=== PATIENT | male | born 1960 | race Caucasian/White ===

== ENCOUNTER 2017-07-31 20:17 | Inpatient (IN) | payer OTHER ==
[~2017-07-31] VITALS: Ht 193 cm; Wt 127.0 kg
[2017-07-31 02:00] VITALS: BP_SYST 123
[2017-07-31 20:33] VITALS: BP_SYST 150
[2017-07-31] MEDS ORDERED: MORPHINE SULFATE 10 MG/ML VIAL IVP ONE ×2 (21:00→23:15)
[2017-07-31] MEDS ORDERED: NACL 0.9% 1,000 ML IV ONE (21:00)
[2017-07-31] MEDS ORDERED: ONDANSETRON HCL 4 MG/2 ML VIAL IVP ONE (21:00)
[2017-07-31 21:21] LABS: BASOPHILS # (AUTO) 0.1 K/uL (0.0-0.2); BASOPHILS % (AUTO) 0.6 % (0.0-2.0); EOSINOPHILS % (AUTO) 0.1 % (0.0-4.0); HEMATOCRIT 50.9 % (36-54); LYMPHOCYTES # (AUTO) 4.8 K/uL (1.0-5.5); LYMPHOCYTES % (AUTO) 20.8 % (20.5-51.5); MEAN CORPUSCULAR HEMOGLOBIN 30 pg (27-31); MEAN CORPUSCULAR HGB CONC 33 % (32-36); MEAN CORPUSCULAR VOLUME 90 fL (79.0-98.0); MONOCYTES # (AUTO) 1.2 K/uL (0.0-1.0); NEUTROPHILS # (AUTO) 17.1 K/uL (1.8-7.7); NEUTROPHILS % (AUTO) 73.5 % (40.0-70.0); PLATELET COUNT (AUTO) 388 K/uL (130-430); RED BLOOD CELL COUNT(AUTO) 5.68 MIL/uL (4.2-6.2); RED CELL DISTRIBUTION WIDTH 13.3 % (9.0-15.0); WHITE BLOOD COUNT (AUTO) 23.2 K/uL (4.8-10.8)
[2017-07-31 21:26] LABS: CALCIUM 8.8 mg/dL (8.4-11.0); CREATININE 1.03 mg/dL (0.55-1.30); POTASSIUM 3.8 mmol/L (3.5-5.1)
[2017-07-31 21:30] LABS: ALBUMIN 2.9 g/dL (3.4-4.8); PROTHROMBIN TIME 9.8 SECS (9.5-12.5); TOTAL BILIRUBIN 0.6 mg/dL (0.0-1.0)
[2017-07-31 22:26] LABS: BILIRUBIN,URINE 1+ (NEGATIVE); BLOOD, URINE NEGATIVE (NEGATIVE); CLARITY/URINE SL HAZY (CLEAR); COLOR,URINE YELLOW (YELLOW); GLUCOSE,URINE NEGATIVE (NEGATIVE); KETONES,URINE NEGATIVE (NEGATIVE); LEUKOCYTE ESTERASE ,URINE NEGATIVE (NEGATIVE); NITRITE, URINE NEGATIVE (NEGATIVE); PROTEIN URINE NEGATIVE (NEGATIVE); UROBILINOGEN,URINE 0.2 (0.2-1.0)
[2017-08-01] MEDS ORDERED: OSEL75CA PO (00:34)
[2017-08-01] MEDS ORDERED: LISI-219 PO (00:34)
[2017-08-01] MEDS ORDERED: VITD2000 PO (00:34)
[2017-08-01] MEDS ORDERED: FURO-150 PO (00:34)
[2017-08-01] MEDS ORDERED: ASPI-859 PO (00:34)
[2017-08-01] MEDS ORDERED: LIP10 PO (00:34)
[2017-08-01] MEDS ORDERED: AMOX-426 PO (00:34)
[2017-08-01] MEDS ORDERED: POTA8TAB4 PO (00:34)
[2017-08-01] MEDS ORDERED: NIFE90TA48 PO (00:34)
[2017-08-01] MEDS ORDERED: MORPHINE 2 MG/ML INJ. SYRINGE IVP PRN (01:15)
[2017-08-01] MEDS ORDERED: ACETAMINOPHEN 325 MG TABLET PO PRN (01:15)
[2017-08-01] MEDS ORDERED: ALBUTEROL SULFATE 0.083% 2.5 MG/3 ML VIAL.NEB INH PRN (01:15)
[2017-08-01] MEDS ORDERED: PIPERACILLIN/TAZO 3.375/DEX-IS 50 ML IV ONE (01:30)
[2017-08-01] MEDS ORDERED: PANTOPRAZOLE SODIUM 40 MG/VIAL (PROTONIX) IVP ONE (01:30)
[2017-08-01 01:42] VITALS: BP_SYST 123
[2017-08-01] MEDS ORDERED: PIPERACILLIN/TAZOBACTAM 3.375 GM/VIAL (ZOSYN) IV ONE (02:25)
[2017-08-01] MEDS: NACL 0.9% 1,000 ML IV SCH ×3 (02:37→17:01)
[2017-08-01 03:24] VITALS: BP_SYST 115
[2017-08-01] MEDS: PIPERACILLIN/TAZO 3.375/DEX-IS 50 ML IV SCH ×3 (05:23→18:17)
[2017-08-01] MEDS: MORPHINE 4 MG/ML INJ. SYRINGE IVP PRN ×4 (08:10→22:21)
[2017-08-01 08:11] VITALS: BP_SYST 127
[2017-08-01] MEDS: PANTOPRAZOLE SODIUM 40 MG/VIAL (PROTONIX) IVP SCH ×2 (08:11→22:22)
[2017-08-01 08:13] LABS: BASOPHILS # (AUTO) 0.2 K/uL (0.0-0.2); BASOPHILS % (AUTO) 0.8 % (0.0-2.0); EOSINOPHILS # (AUTO) 0.1 K/uL (0.0-0.4); EOSINOPHILS % (AUTO) 0.5 % (0.0-4.0); HEMATOCRIT 44.5 % (36-54); HEMOGLOBIN 14.6 g/dL (14.0-18.0); LYMPHOCYTES # (AUTO) 5.4 K/uL (1.0-5.5); LYMPHOCYTES % (AUTO) 25.2 % (20.5-51.5); MEAN CORPUSCULAR HEMOGLOBIN 30 pg (27-31); MEAN CORPUSCULAR HGB CONC 33 % (32-36); MEAN CORPUSCULAR VOLUME 91 fL (79.0-98.0); MONOCYTES # (AUTO) 1.5 K/uL (0.0-1.0); NEUTROPHILS # (AUTO) 14.1 K/uL (1.8-7.7); NEUTROPHILS % (AUTO) 66.5 % (40.0-70.0); RED BLOOD CELL COUNT(AUTO) 4.88 MIL/uL (4.2-6.2); RED CELL DISTRIBUTION WIDTH 13.4 % (9.0-15.0); WHITE BLOOD COUNT (AUTO) 21.3 K/uL (4.8-10.8)
[2017-08-01 08:21] LABS: PLATELET COUNT (AUTO) 345 K/uL (130-430)
[2017-08-01 08:23] LABS: ALANINE AMINOTRANSFERASE 39 U/L (12-78); ALBUMIN 2.5 g/dL (3.4-4.8); ASPARTATE AMINOTRANSFERASE 17 U/L (10-37); CALCIUM 8.8 mg/dL (8.4-11.0); CHLORIDE 105 mmol/L (98-107); CREATININE 1.17 mg/dL (0.55-1.30); GLUCOSE 110 mg/dL (70-99); POTASSIUM 5.1 mmol/L (3.5-5.1); SODIUM SERUM 137 mmol/L (136-145); TOTAL BILIRUBIN 0.5 mg/dL (0.0-1.0); UREA NITROGEN, BLOOD 23 mg/dL (8-21)
[2017-08-01 08:24] LABS: GFR AFRICAN AMERICAN 83 mL/min (>90)
[2017-08-01 08:26] LABS: ANION GAP < 3 (5-15)
[2017-08-01] MEDS ORDERED: DIPHENHYDRAMINE INJ 50 MG/ML VIAL ONE ×2 (09:08→09:09)
[2017-08-01] MEDS ORDERED: SIMETHICONE 40 MG/0.6 ML ML ONE (09:08)
[2017-08-01] MEDS: MIDAZOLAM HCL 5 MG/5 ML VIAL ONE ×3 (09:37→09:41)
[2017-08-01] MEDS: fentaNYL CITRATE/PF 100 MCG/2 ML AMP ONE ×3 (09:37→09:41)
[2017-08-01] MEDS: ONDANSETRON HCL 4 MG/2 ML VIAL IVP PRN ×3 (10:28→22:22)
[2017-08-01 12:06] VITALS: BP_SYST 130
[2017-08-01] MEDS: VANCOMYCIN HCL 250 MG CAPSULE PO SCH ×3 (13:25→22:21)
[2017-08-01] MEDS: metroNIDAZOLE 500 mg/NS 100 ML IV SCH ×2 (14:00→22:20)
[2017-08-01 16:19] VITALS: BP_SYST 124
[2017-08-01 20:47] VITALS: BP_SYST 128
[2017-08-02] MEDS: PIPERACILLIN/TAZO 3.375/DEX-IS 50 ML IV SCH ×5 (00:06→19:36)
[2017-08-02] MEDS: NACL 0.9% 1,000 ML IV SCH ×3 (00:07→17:37)
[2017-08-02 00:31] VITALS: BP_SYST 103
[2017-08-02] MEDS: metroNIDAZOLE 500 mg/NS 100 ML IV SCH ×3 (05:28→21:21)
[2017-08-02 08:00] VITALS: BP_SYST 140
[2017-08-02] MEDS: PANTOPRAZOLE SODIUM 40 MG/VIAL (PROTONIX) IVP SCH ×2 (08:32→21:20)
[2017-08-02] MEDS: VANCOMYCIN HCL 250 MG CAPSULE PO SCH ×4 (08:32→21:19)
[2017-08-02] MEDS: ONDANSETRON HCL 4 MG/2 ML VIAL IVP PRN ×3 (08:36→21:19)
[2017-08-02] MEDS: MORPHINE 4 MG/ML INJ. SYRINGE IVP PRN ×3 (08:37→21:20)
[2017-08-02 10:00] LABS: BASOPHILS # (AUTO) 0.1 K/uL (0.0-0.2); BASOPHILS % (AUTO) 0.4 % (0.0-2.0); EOSINOPHILS # (AUTO) 0.2 K/uL (0.0-0.4); EOSINOPHILS % (AUTO) 1.5 % (0.0-4.0); HEMATOCRIT 37.5 % (36-54); HEMOGLOBIN 13.1 g/dL (14.0-18.0); LYMPHOCYTES # (AUTO) 4.5 K/uL (1.0-5.5); LYMPHOCYTES % (AUTO) 28.8 % (20.5-51.5); MEAN CORPUSCULAR HEMOGLOBIN 31 pg (27-31); MEAN CORPUSCULAR HGB CONC 35 % (32-36); MEAN CORPUSCULAR VOLUME 89 fL (79.0-98.0); MONOCYTES # (AUTO) 0.8 K/uL (0.0-1.0); MONOCYTES % (AUTO) 4.9 % (1.7-9.3); NEUTROPHILS # (AUTO) 9.9 K/uL (1.8-7.7); NEUTROPHILS % (AUTO) 64.4 % (40.0-70.0); PLATELET COUNT (AUTO) 308 K/uL (130-430); RED CELL DISTRIBUTION WIDTH 13.1 % (9.0-15.0)
[2017-08-02 10:03] LABS: WHITE BLOOD COUNT (AUTO) 15.5 K/uL (4.8-10.8)
[2017-08-02 10:07] LABS: CALCIUM 8.1 mg/dL (8.4-11.0); CHLORIDE 107 mmol/L (98-107); CREATININE 1.11 mg/dL (0.55-1.30); GLUCOSE 100 mg/dL (70-99); POTASSIUM 4.4 mmol/L (3.5-5.1); SODIUM SERUM 139 mmol/L (136-145); UREA NITROGEN, BLOOD 18 mg/dL (8-21)
[2017-08-02 10:12] LABS: ALANINE AMINOTRANSFERASE 34 U/L (12-78); ALBUMIN 2.4 g/dL (3.4-4.8); ASPARTATE AMINOTRANSFERASE 12 U/L (10-37); TOTAL BILIRUBIN 0.4 mg/dL (0.0-1.0)
[2017-08-02 10:14] LABS: ANION GAP < 3 (5-15); GFR AFRICAN AMERICAN 88 mL/min (>90)
[2017-08-02 12:30] VITALS: BP_SYST 129
[2017-08-02 16:26] VITALS: BP_SYST 142
[2017-08-02 21:02] VITALS: BP_SYST 136
[2017-08-03] MEDS: PIPERACILLIN/TAZO 3.375/DEX-IS 50 ML IV SCH ×3 (00:30→11:52)
[2017-08-03] MEDS: NACL 0.9% 1,000 ML IV SCH ×3 (00:32→15:07)
[2017-08-03 00:37] VITALS: BP_SYST 144
[2017-08-03] MEDS: ONDANSETRON HCL 4 MG/2 ML VIAL IVP PRN ×4 (03:41→16:05)
[2017-08-03] MEDS: MORPHINE 4 MG/ML INJ. SYRINGE IVP PRN ×4 (03:41→16:05)
[2017-08-03 05:56] LABS: BASOPHILS # (AUTO) 0.1 K/uL (0.0-0.2); BASOPHILS % (AUTO) 0.4 % (0.0-2.0); EOSINOPHILS # (AUTO) 0.3 K/uL (0.0-0.4); EOSINOPHILS % (AUTO) 1.9 % (0.0-4.0); HEMATOCRIT 36.8 % (36-54); HEMOGLOBIN 12.3 g/dL (14.0-18.0); LYMPHOCYTES # (AUTO) 4.5 K/uL (1.0-5.5); LYMPHOCYTES % (AUTO) 31.7 % (20.5-51.5); MEAN CORPUSCULAR HEMOGLOBIN 30 pg (27-31); MEAN CORPUSCULAR HGB CONC 33 % (32-36); MONOCYTES # (AUTO) 0.9 K/uL (0.0-1.0); MONOCYTES % (AUTO) 6.5 % (1.7-9.3); NEUTROPHILS # (AUTO) 8.3 K/uL (1.8-7.7); NEUTROPHILS % (AUTO) 59.5 % (40.0-70.0); PLATELET COUNT (AUTO) 292 K/uL (130-430); RED BLOOD CELL COUNT(AUTO) 4.04 MIL/uL (4.2-6.2); RED CELL DISTRIBUTION WIDTH 13.6 % (9.0-15.0); WHITE BLOOD COUNT (AUTO) 14.1 K/uL (4.8-10.8)
[2017-08-03] MEDS: metroNIDAZOLE 500 mg/NS 100 ML IV SCH ×2 (05:57→13:43)
[2017-08-03 06:21] LABS: ALBUMIN 2.3 g/dL (3.4-4.8); BILIRUBIN,DIRECT 0.2 mg/dL (0.0-0.3); TOTAL BILIRUBIN 0.4 mg/dL (0.0-1.0)
[2017-08-03 07:00] LABS: MEAN CORPUSCULAR VOLUME 91 fL (79.0-98.0)
[2017-08-03 08:00] VITALS: BP_SYST 144
[2017-08-03] MEDS: VANCOMYCIN HCL 250 MG CAPSULE PO SCH ×3 (08:02→16:06)
[2017-08-03] MEDS: PANTOPRAZOLE SODIUM 40 MG/VIAL (PROTONIX) IVP SCH (08:55)
[2017-08-03 12:00] VITALS: BP_SYST 104; BP_SYST 131
[2017-08-03] MEDS: SUCRALFATE 1 GM TABLET PO SCH ×3 (13:00→16:05)
[2017-08-03 16:00] VITALS: BP_SYST 134
[2017-08-03] MEDS ORDERED: TEMAZEPAM 15 MG CAPSULE PO PRN (16:45)
[2017-08-03 17:03] VITALS: BP_SYST 93
== END 2017-08-03 17:55 | disposition short-term general hospital (02) | DRG 392 ==
LOC: SED 20:17 → SMU 08-01 01:01
PROVIDERS: ADMIT Internal Medicine; ATTEND Internal Medicine
PROC: 0DB68ZX Excision of Stomach, Via Natural or Artificial Opening Endoscopic, Diagnostic (ICD-10-PCS; 2017-08-01)
PROC: 0DB58ZX Excision of Esophagus, Via Natural or Artificial Opening Endoscopic, Diagnostic (ICD-10-PCS; principal; 2017-08-01 09:00)
DX: K29.60 Other gastritis without bleeding (principal); R18.8 Other ascites; E03.9 Hypothyroidism, unspecified; E78.00 Pure hypercholesterolemia, unspecified; I10 Essential (primary) hypertension; K20.9 Esophagitis, unspecified; K57.90 Diverticulosis of intestine, part unspecified, without perforation or abscess without bleeding; Z79.899 Other long term (current) drug therapy
CPT/HCPCS: 36415; 43239; 76700-TC; 76705; 78226; 80053; 80076; 81003; 83690-TC; 85025; 85610-TC; 85730-TC; 87081; 88305; 88312; 88313; 96361; 96374; 96375; 96376; 99285; A9537; C9113; J1200; J2250; J2270; J2405; J2543; J3010; J3490; J7030; J7060